=== PATIENT | female | born 1995 | race Hispanic/Latino ===

== ENCOUNTER 2021-11-03 14:11 | Emergency (ER) | payer OTHER ==
[2021-11-03] MEDS ORDERED: LORazepam 2 MG/ML VIAL IV ONE (17:15)
[2021-11-03] MEDS ORDERED: SODIUM CHLORIDE 0.9% 1000 ML 1,000 ML IV ONE (17:15)
--- NOTE | 2021-11-03 18:25 | Emergency Department Report ---
ED General Adult HPI - General Stated complaint: CP Time Seen by Provider: 11/03/21 16:55 Source: patient Mode of arrival: Ambulatory Limitations: No Limitations - History of Present Illness Initial comments: Patient is a 26-year-old female presents emergency room complaints of a panic attack that occurred just prior to arrival. Patient states that this morning around 9 AM she took Adderall, 1 monster energy drink, 1 red bull energy drink, and another energy shot because she was planning on taking a drive and did not want to get sleepy. She states after she took all of this caffeine and the Adderall she went into a panic attack. She states that she was experiencing palpitations, hyperventilation, chest tightness. Patient has a past medical history of anxiety but states that she did not take her medication today. No allergies to medications. She denies any pleuritic pain, calf pain, leg swelling, hemoptysis, fever, chills, nausea, vomiting, diarrhea. - Related Data Allergies Allergy/AdvReac Type Severity Reaction Status Date / Time No Known Allergies Allergy Verified 11/03/21 18:40 ED Review of Systems ROS: Stated complaint: CP Other details as noted in HPI Comment: All other systems reviewed and negative ED Physical Exam - General Limitations: No Limitations General appearance: alert, anxious - Head Head exam: Present: atraumatic, normocephalic - Eye Eye exam: Present: normal appearance - ENT ENT exam: Present: mucous membranes moist - Respiratory Respiratory exam: Present: normal lung sounds bilaterally. Absent: respiratory distress, wheezes, rales, rhonchi, stridor, chest wall tenderness, accessory muscle use, decreased breath sounds, prolonged expiratory - Cardiovascular Cardiovascular Exam: Present: normal rhythm, tachycardia, normal heart sounds. Absent: systolic murmur, diastolic murmur, rubs, gallop - Neurological Exam Neurological exam: Present: alert, oriented X3 - Psychiatric Psychiatric exam: Present: anxious - Skin Skin exam: Present: warm, dry, intact ED Course Vital Signs 11/03/21 11/03/21 18:35 18:45 Temperature 97.5 F L 98.2 F Pulse Rate 74 70 Respiratory 18 12 Rate Blood Pressure 131/66 131/66 [Right] O2 Sat by Pulse 99 99 Oximetry ED Medical Decision Making - EKG Data EKG shows normal: sinus rhythm, axis, intervals, QRS complexes, ST-T waves Rate: normal - Medical Decision Making Patient is a 26-year-old female presents emergency room complaints of a panic attack that occurred just prior to arrival. Patient states that this morning around 9 AM she took Adderall, 1 monster energy drink, 1 red bull energy drink, and another energy shot because she was planning on taking a drive and did not want to get sleepy. She states after she took all of this caffeine and the Adderall she went into a panic attack. She states that she was experiencing palpitations, hyperventilation, chest tightness. Patient has a past medical history of anxiety but states that she did not take her medication today. No allergies to medications. She denies any pleuritic pain, calf pain, leg swelling, hemoptysis, fever, chills, nausea, vomiting, diarrhea. Vitals are stable. EKG is a normal limits. Patient appears very anxious on exam and she has mild tachycardia with normal rhythm on exam. Symptoms likely related to too much caffeine use. Patient given 1 L normal saline and 0.5 mg Ativan and symptoms resolved and she was feeling much better and ready to go home. Advised patient Please increase your water intake. Please avoid all caffeine intake including energy drinks, sodas, tea, coffee, chocolate. Follow-up with your primary care doctor. Return to emergency room for any new or worsening symptoms. Critical care attestation.: If time is entered above; I have spent that time in minutes in the direct care of this critically ill patient, excluding procedure time. ED Disposition Clinical Impression: Panic attack, Caffeine use Disposition: 01 HOME / SELF CARE / HOMELESS Is pt being admited?: No Does the pt Need Aspirin: No Condition: Stable Instructions: Panic Attack, [id number] Additional Instructions: Please increase your water intake. Please avoid all caffeine intake including energy drinks, sodas, tea, coffee, chocolate. Follow-up with your primary care doctor. Return to emergency room for any new or worsening symptoms. Referrals: RAUL MILLER MD [Staff Physician] - 3-5 Days [facility] [Provider Group] - 3-5 Days Time of Disposition: 18:24 Print Language: CONGOLESE
[2021-11-03 18:36] VITALS: BP 131/66
--- NOTE | 2021-11-04 11:52 | Electrocardiograph Report ---
[facility] Test Date: 2021-11-03 Test Time: 14:19:08 Pat Name: IDALIA HESTER Department: Room: Gender: F Baby Sitter: TERRY : 1995 Requested By: CHACHA BOBO Order Number: [id number] Reading MD: Jonathan Zuñiga Measurements Intervals [place] Rate: 79 P: 1 WI: 121 QRS: 57 QRSD: 97 T: 28 QT: 400 QTc: 459 Interpretive Statements Sinus rhythm No previous ECG available for comparison Electronically Signed On 11-04-2021 11:51:25 EDT by Jonathan Zuñiga
== END 2021-11-03 18:45 | disposition home or self-care (01) ==
LOC: ED 14:11
DX: F41.0 Panic disorder [episodic paroxysmal anxiety] (principal); F15.90 Other stimulant use, unspecified, uncomplicated
CPT/HCPCS: 93005; 96361; 96374; 99282; J2060; J7030; Q0162